=== PATIENT | male | born 1990 | race Caucasian/White ===

== ENCOUNTER 2020-12-11 22:10 | Emergency (ER) | payer MEDICAID, SELFPAY ==
[~2020-12-11] VITALS: Ht 175.3 cm; Wt 68.0 kg
[2020-12-11 22:10] VITALS: BP_SYST 128
[~2020-12-11 22:10] MED LIST: ACET-10 PO; AMOX-426 PO; IBUP-1971 PO
[2020-12-11 22:58] LABS: BILIRUBIN,URINE NEGATIVE (NEGATIVE); BLOOD, URINE NEGATIVE (NEGATIVE); CLARITY/URINE CLEAR (CLEAR); COLOR,URINE YELLOW (YELLOW); GLUCOSE,URINE NEGATIVE (NEGATIVE); KETONES,URINE NEGATIVE (NEGATIVE); LEUKOCYTE ESTERASE ,URINE NEGATIVE (NEGATIVE); NITRITE, URINE NEGATIVE (NEGATIVE); PROTEIN URINE NEGATIVE (NEGATIVE); UROBILINOGEN,URINE 0.2 (0.2-1.0)
[2020-12-11 23:01] LABS: BASOPHILS % (AUTO) 0.1 % (0.0-2.0); EOSINOPHILS # (AUTO) 0.1 K/uL (0.0-0.4); EOSINOPHILS % (AUTO) 0.6 % (0.0-4.0); HEMATOCRIT 41.9 % (36-54); HEMOGLOBIN 14.8 g/dL (14.0-18.0); LYMPHOCYTES # (AUTO) 0.8 K/uL (1.0-5.5); LYMPHOCYTES % (AUTO) 5.3 % (20.5-51.5); MEAN CORPUSCULAR HEMOGLOBIN 30 pg (27-31); MEAN CORPUSCULAR HGB CONC 35 % (32-36); MEAN CORPUSCULAR VOLUME 85 fL (79.0-98.0); MONOCYTES # (AUTO) 0.6 K/uL (0.0-1.0); MONOCYTES % (AUTO) 3.9 % (1.7-9.3); NEUTROPHILS # (AUTO) 13.1 K/uL (1.8-7.7); NEUTROPHILS % (AUTO) 90.1 % (40.0-70.0); PLATELET COUNT (AUTO) 331 K/uL (130-430); RED BLOOD CELL COUNT(AUTO) 4.94 MIL/uL (4.2-6.2); RED CELL DISTRIBUTION WIDTH 12.3 % (9.0-15.0); WHITE BLOOD COUNT (AUTO) 14.6 K/uL (4.8-10.8)
[2020-12-11 23:13] LABS: CALCIUM 8.7 mg/dL (8.4-11.0); CREATININE 1.15 mg/dL (0.55-1.30); POTASSIUM 3.4 mmol/L (3.5-5.1)
[2020-12-11 23:19] LABS: ALBUMIN 3.6 g/dL (3.4-4.8); TOTAL BILIRUBIN 0.4 mg/dL (0.0-1.0)
[2020-12-11] MEDS ORDERED: MAG HYDROX/AL HYDROX/SIMETH 30 ML, DICYCLOMINE HCL 20 MG, LIDOCAINE VISCOUS 2% 15ML (PO... PO ONE ×3 (23:30)
[2020-12-11] MEDS ORDERED: DICYCLOMINE HCL 10 MG/5 ML SOLUTION ONE (23:41)
[2020-12-11] MEDS ORDERED: MAG-AL HYDROX/SIMETH 30 ML UDC ONE (23:41)
[2020-12-11] MEDS ORDERED: LIDOCAINE VISCOUS 2%, 15 ML UDC ONE (23:42)
[2020-12-11 23:52] VITALS: BP_SYST 128
== END 2020-12-11 23:52 | disposition home or self-care (01) ==
LOC: SED 22:10
DX: R10.13 Epigastric pain (principal)
CPT/HCPCS: 36415; 76700-TC; 80053; 81003; 82150-TC; 83605; 83690-TC; 84484; 85025; 93005; 99285; J2001